=== PATIENT | female | born 1980 | race Two or more races ===

== ENCOUNTER → 2016-08-04 | Outpatient (CLI) | payer OTHER ==
[~2016-08-04] MED LIST: ARIXTRA7.5 MG/0.6 SQ; CEPHALEXIN500 M1 PO; COUMADIN PO; FEROSUL325 ( 651 PO; LORTAB 5/500 TA1 TA1 PO; MUCINEX COLD-F177 ML; ULTRAM PO; XARELTO20 MG PO; [UNRECOGNIZED DRUG - OTHER]
--- NOTE | ~2016-08-04 | US85 ---
[facility] A Service of [facility] RADIOLOGY TEXT RESULTS PATIENT: ROMA JACKSON LOCATION: CNIV : 80 UNIT #: [id number] AGE: [address]: Barrera Noyola MD SEX: F ORDER DR: [id number] [facility] [address] [place], [place] [address] [id number] O MR#: [id number] #: [id number] NAME: ROMA JACKSON : 1980 SEX: F STUDY DATE/TIME: 08/04/2016 17:15 UNIT: CNIV ROOM: STUDY DESCRIPTION: [facility] Unil or [facility] Stdy Attending Physician: Barrera Noyola M.D. Referring Physician: Barrera Noyola M.D. Ordering Physician: Barrera Noyola M.D. Primary Care Physician: Daniella Domínguez M.D. MEDICAL IMAGING REPORT This report is preliminary unless electronic signature is present EXAM Left lower extremity venous ultrasound. INDICATION Left lower extremity swelling and pain for 2 weeks with history of left lower extremity clot in 2011. Patient is on blood thinners. TECHNIQUE Venous ultrasound examination of the left lower extremity was performed using grayscale, spectral Doppler and color flow Doppler imaging. FINDINGS The examination is negative. There is no evidence of left lower extremity deep venous thrombus from the groin to the lower calf. Visualized greater saphenous vein is also patent. IMPRESSION Negative examination. No evidence of left lower extremity DVT. Dictated by... Alvin Reilly M.D. THIS IS AN ELECTRONICALLY VERIFIED REPORT Alvin Reilly M.D. at 08/06/2016 7:09 AM RICHIE/lesly TD: 08/05/2016 17:01 JOB #: [id number] [facility] A Service of [facility] RADIOLOGY TEXT RESULTS PATIENT: ROMA JACKSON LOCATION: CNIV : 80 UNIT #: [id number] AGE: [address]: Barrera Noyola MD SEX: F ORDER DR: MEDICAL IMAGING REPORT Page 1 of 1 COPY
== END | disposition home or self-care (01) ==
LOC: CNIV 16:26
DX: I82.509 Chronic embolism and thrombosis of unspecified deep veins of unspecified lower extremity (principal)
CPT/HCPCS: 93971